=== PATIENT | male | born 1960 | race Caucasian/White ===

== ENCOUNTER 2016-10-28 09:59 | Emergency (ER) | payer OTHER ==
--- NOTE | 2016-10-28 10:44 | RAD ---
FOOT LEFT 3 VIEWS COMPARISON: None. HISTORY: Dropped a Sharps container on the left foot. Pain at the great toe. FINDINGS: Views: Left foot dorsoplantar, medial oblique, lateral. Bones: Normal. Joints: Normal. Soft tissues: Normal. IMPRESSION: 1. Normal 3 views of the left foot.
== END 2016-10-28 10:56 | disposition home or self-care (01) ==
LOC: ED 09:59
DX: S90.112A Contusion of left great toe without damage to nail, initial encounter (principal); F17.210 Nicotine dependence, cigarettes, uncomplicated; W20.8XXA Other cause of strike by thrown, projected or falling object, initial encounter; Y92.9 Unspecified place or not applicable